=== PATIENT | male | born 1965 | race Caucasian/White ===

== ENCOUNTER → 2022-12-06 | Outpatient (CLI) | payer OTHER, SELFPAY ==
--- NOTE | 2022-12-06 | IMM_PTH ---
PATIENT: MARIELLE BARRY LOC: [facility] U#:[id number] AGE/SX: 57/M ROOM: RE12/06/[address]: Dr. Gideon Rodriguez MD : 1965 BED: DIS: 12/06/2022 SPEC #: [id number] RECD: 12/10/22 14:00 STATUS: KANG RENash #: [id number] DAYSI: 12/06/22 00:[address]: Gideon Rodriguez DEPT: IMMUNOHISTOCHEMISTRY RECD BY: Nena Cano Tissues: Left side of neck Procedures: BCL-2 (add) BCL-6 (add) CD10 (add) CD15 (add) CD20 (add) CD23 (add) CD3 (add) CD30 (add) CD43 (add) CD45 (add) CD5 (add) CD79A (add) KI-67 (add) Pankeratin (initial) PHYSICIAN & INSTITUTION [address] [address] SPECIMEN INFORMATION: Tissue Source: Left posterior neck mass/node Clinical Info: Left posterior neck mass/node Specimen Number: [id number] CPT code: 43853 METHODOLOGY: Deparaffinized sections of prefer/formalin-fixed tissue or PAP/DQ stained slides are incubated with monoclonal/polyclonal antibodies/oligonucleotide probes. Localization is made via biotin free immunoperoxidase method. Appropriate controls are performed and reacted as expected. Results on target cell population are indicated in the following table: RESULTS: ANTIBODY / CLONE RESULT AE1-3 (AE1/AE3/PCK26) negative CD3 (PS1) positive CD5 (SP10) positive CD10 (56C6) negative CD15 (MMA) negative CD20 (L26) positive CD23 (1B12) negative CD30 (Hi-H2) negative CD43 (L60) positive CD45 (RP2/18) positive CD79a (11E3) positive BCL-2 (bcl-2/100/D5) negative BCL-6 (YU280V/A8) negative Ki-67 (30-9) positive, low These tests were developed and their performance characteristics determined by [facility]. They may not have been cleared or approved by the U.S. Food and Drug Administration. The FDA has determined that such clearance or approval is not necessary. The above immunohistochemical/dualISH markers are ordered and reviewed by the Pathologist. INTERPRETATION: Left posterior neck, core biopsy: Polytypic (benign) lymphoid tissue. AM:gelacio 12/12/22
--- NOTE | 2022-12-06 08:00 | MASS_PTH ---
PATIENT: MARIELLE BARRY LOC: [facility]#:[id number] AGE/SX: 57/M ROOM: RE12/06/[address]: Dr. Gideon Rodriguez MD : 1965 BED: DIS: 12/06/2022 SPEC #: [id number] RECD: 12/06/22 13:45 STATUS: KANG LATISHA #: [id number] DAYSI: 12/06/22 08:[address]: Gideon Rodriguez DEPT: SURGICAL PATHOLOGY RECD BY: Randy Roblero Tissues: Neck, NOS Procedures: Special Stain Group II Surgery Specimen Level IV Imprint (control) HEADER OPERATION: Biopsy of left posterior neck mass/node PRE-OP DIAGNOSIS: Left posterior neck mass/node TISSUE SUBMITTED: Left posterior neck mass/node MICROSCOPIC DIAGNOSIS Left posterior neck, core biopsy: Polytypic lymphoid tissue. See comment. AM:alejandra 12/10/2022 COMMENT The specimen is evaluated at the time of touch preps (2) by Dr. Parikh. Immediate Evaluation = Polymorphous lymphocytes present. Immunohistochemistry ([id number]) supports the above diagnosis. FLOW analysis shows no evidence of a B-cell or T-cell lymphoma. Case has been reviewed in consultation with Dr. Martinez who concurs with the above diagnosis. IDC:SJ MICROSCOPIC DESCRIPTION Slides are reviewed. GROSS DESCRIPTION Received in fixative is one container labeled with the patient's name and designated left posterior neck mass biopsy. The specimen consists of multiple cores of pink-bowen soft tissue that in aggregate measure 2 x 0.5 x 0.1 cm. Loop Drier Operator portions are submitted for flow cytometry analysis. Two touch prep smears are prepared. The remainder of the specimen is submitted in its entirety in one cassette. / AM:alejandra 12/07/2022 TC:5 CPT: 60091, 19925
== END | disposition home or self-care (01) ==
LOC: LABSPEC 14:07
PROVIDERS: Referring Provider Surgery; Visit Provider Surgery
DX: R22.1 Localized swelling, mass and lump, neck (principal)
CPT/HCPCS: 88305; 88313; 88341; 88342

== ENCOUNTER 2023-10-14 13:51 | Observation (INO) | payer OTHER, SELFPAY ==
[2023-10-07 15:00] LABS: Partial Thromboplast Time 25.9 Seconds (24.1-36.2)
[2023-10-07 15:01] LABS: International Normalized Ratio 1.1
[2023-10-07 15:14] LABS: AST(SGOT) 18 U/L (15-37); Alanine Aminotransfer ALT/SGPT 50 U/L (16-61); Albumin, Serum 3.9 g/dL (3.2-5.0); Alkaline Phosphatase 85 U/L (45-117); Anion Gap 6 (5-15); BUN 21 mg/dL (7-18); BUN/Creat Ratio 19.6 RATIO (10-20); Calcium,Total 9.1 mg/dL (8.5-10.1); Chloride 107 mmol/L (98-107); Creatinine, Serum 1.07 mg/dL (0.70-1.30); EST Glomerular Filtration Rate 75 mL/min (>60); Est Glom Filt Rate - Afr Amer 91 mL/min (>60); Globulin 3.8 g/dL (2.2-4.2); Glucose 134 mg/dL (74-106); Magnesium 2.4 mg/dL (1.6-2.6); Potassium 3.7 mmol/L (3.5-5.1); Protein, Total 7.7 g/dL (6.4-8.2); Sodium Level 141 mmol/L (136-145)
[2023-10-07 16:00] LABS: HIV - WCH Non-Reactive (Nonreactive); Hepatitis B Surface Antibody Non-Reactive; Hepatitis C Antibody Non-Reactive (Nonreactive)
[2023-10-09 05:07] LABS: Hepatitis A AB, Total Negative (Negative)
--- NOTE | 2023-10-11 11:59 | HP.PCM_ITS ---
History and Physical MR#: [id number] Acct: [id number] Name: MARIELLE BARRY Rep #: [id number] : 1965 Provider: Dr. William Temple DO Age/Sex: 58/M [place] [facility] [place]: Signed Intake Vital Signs 09/19/2313:54 Height 5 ft 8 in Weight: 234 lb 2 oz BMI 35.6 Intake Visit Reasons: LUMBAR SPINE Accompanied by: Is patient in pain?: Yes Pain scale (1-10): 8 Allergies No Known Allergies Allergy (Unverified 09/19/23 13:55) Medications tramadol 50 mg tablet 50 mg PO Q8H 09/19/23 [History Confirmed 09/19/23] vitamin B uutmjpo-cshrypcj-ikaa-berberine 100 mg-100 mg tablet tab PO 09/19/23 [History Confirmed 09/19/23] PFSH Social History Smoking Status: Never smoker substance use type: does not use HPI LUMBAR SPINE Details: This documentation accurately reflects the service provided and the decisions made by me, Dr. William Temple DO 09/19/23 1352. Part of today?s visit was documented by Tonya FUNES, acting as scribe. MARIELLE BARRY is a 58 year old M here today NEW patient for lower back pain that radiates into the left hip and down the leg. States that this has been going on for 2 months. Denies any recent injury. He has numbness and tingling down the left leg. States that he is stiff in the morning but by the end of the day his pain is worse. Any physical activity like walking or standing makes his pain worse. He was using both ice and heat but for the last week and a half he has been just using heat. He has been seeing a chiropractor which is who referred him here. His chiropractor is Dr. Cabral at [facility] in [place]. He is taking Tramadol for his pain. Denies injections. He does so some stretches a few times a day which in the beginning helped but over time stopped working. States that doing traction in the morning with the chiropractor gives him the most relief but wears off in about 2 hours. Denies bowel/bladder dysfunction. Most pleasant gentleman 58 years old who presents accompanied by his . He stated to my scribe that this is been going on for a couple of months however his assured me that its been going on at least 3 months. First the pain was a 10/10 in severity and it was there every single day. Now it is only an 8/10 in severity and he is able to work but he does so in significant pain. Pain starts at the top of his buttocks on the left side and goes down his right thigh and down the back of the right leg to the top of his foot. He is basically describing both L5 and S1 symptomatology. He has never had this pain ever before. He states that 4 months ago his back felt normal and his leg felt normal. Again he really does not have low back pain despite the speak of its all at the top of his but may be the very very outside part of his left back but basically its more lower extremity. On examination he has very positive straight leg raising on the left. He has very positive tension signs on the left. He has positive contralateral straight leg raising. He has weakness of the EHL and the anterior tib on the left as compared to the right. He has some peroneal weakness on the left also as compared to the right. His left Achilles and posterior tibialis reflexes are both absent. The right ones are both 2+. He has no long tract signs. Clonus is absent and Babinski's are downgoing. I reviewed his MRI scan of the lumbar spine that demonstrates that he has a very large extrusion at L4-5 on the left side. It has gone so far behind the L5 vertebral body that is almost reaches the next disc space. Obviously he needs decompression of his L5 and S1 nerve roots. He does not need a fusion because he did not really does not have any significant low back pain. We will put him on the schedule as soon as is reasonably possible hopefully in early October or mid October at the latest. I will see him again at preop. Coding Level of Care Code Off vis,new,level 3 Diagnoses Herniated nucleus pulposus, L4-5 left M51.26 Time Spent (min) 35 Assessment and Plan Assessment and Plan (1) Herniated nucleus pulposus, L4-5 left:
[2023-10-14] VITALS (13 sets, daily range): BP systolic 118–163; BP diastolic 75–96; PULSE 72–84; RESP 12–18; TEMP 36–37.1; O2SAT 95–100; BMI 32.9; BMI 34.1
--- NOTE | 2023-10-14 | DISC_PTH ---
PATIENT: MARIELLE BARRY LOC: [facility] U#:[id number] AGE/SX: 58/M [facility] RE10/14/[address]: Dr. William Temple DO : 1965 BED: 1 DIS: 10/15/2023 SPEC #: [id number] RECD: 10/14/23 13:58 STATUS: KANG REQ #: [id number] DAYSI: 10/14/23 00:[address]: William Temple DEPT: SURGICAL PATHOLOGY RECD BY: Tony Castro ENTERED: 10/15/23 09:14 SP TYPE: DISC OTHR DR: DO Dr. Zena Perez MD Dr. Rohini Kalisetti, MD Tissues: Intervertebral disc, NOS Procedures: Surgery Specimen Level III HEADER OPERATION: Lumbar laminectomy L4-5 left. PRE-OP DIAGNOSIS: Herniated nucleus pulposus, L4-5 left TISSUE SUBMITTED: Disc material MICROSCOPIC DIAGNOSIS Disc L4-5, left, laminectomy: Fragments of fibrocartilaginous tissue with reactive and degenerative changes. EDUARDO:alejandra 10/16/2023 MICROSCOPIC DESCRIPTION Slides are reviewed. GROSS DESCRIPTION Received in fixative is one container labeled with the patient's name and designated disc material. The specimen consists of multiple irregular fragments of bowen, indurated tissue that in aggregate measure 3.0 x 2.5 x 0.4 cm. The specimen is totally submitted in one cassette. / EDUARDO:alejandra 10/15/2023 TC:5 CPT: 71056
[2023-10-14] MEDS: Acetaminophen 500 MG Tablet 1000 MG PO ×2 (09:49→17:42)
[2023-10-14] MEDS: Magnesium 1 GM over 15 mins IV (09:50)
[2023-10-14] MEDS: Lactated Ringers 1,000 ML 15 ML IV (09:50)
[2023-10-14 10:33] LABS: Bedside Glucose 113 mg/dL (74-106)
[2023-10-14] MEDS: Cefazolin 2 GM in 0.9% Normal Saline (100mL Bag) 100 ML IV (11:13)
[2023-10-14] MEDS: THROMBIN (RECOMBINANT) 20,000 UNIT VIAL 20000 UNIT TOPICAL (11:49)
--- NOTE | 2023-10-14 12:00 | RAD_ITS ---
STUDY: X-RAY - LUMBAR SPINE REASON FOR EXAM: Male, 58 years old. LUMBAR LAMINECTOMY L4-5 LEFT TECHNIQUE: Single lateral view of the lumbar spine were obtained. COMPARISON: Comparison is made with prior study dated September 19, 2023. FINDINGS: The localization instrument is seen posterior to the L4-L5 disc space level. RAD/Spine 1 View Any Level IMPRESSION: The localization instrument is seen posterior to the L4-L5 disc space level. Electronically Signed: Brandon Prieto MD at 12:42 EST ,
--- NOTE | 2023-10-14 13:55 | OP.PCM_ITS ---
Report of Operation Description of Surgical Findings:: Preoperative diagnosis: Large disc extrusion L4-5 with left L5 and S1 radiculopathy Postoperative diagnosis: Same Procedure: Lumbar laminectomy discectomy L4-5 on the left CPT code 74217 Surgeon: Dr. Temple Song And Dance Performer: Jordana FAITH Anesthesia: General endotracheal by [facility] EBL: Less than 30 cc Drains: None Complications: None Procedure: Patient was taken to the OR where he was placed under general endotracheal anesthesia while still on his gurney. A Dc catheter was inserted. Neuromonitoring placed her leads on the patient. We then moved the patient onto the prone position on the Dewayne frame. After appropriate positioning with care to protect his bony prominences his genitalia the ulnar nerves on both elbows, brachial plexus on both sides, the cervical spine, and his facial features the back was prepped and draped in standard fashion. I then made a longitudinal incision centered over the low back area subcutaneous tissues were incised length of the skin incision I elevated the paravertebral muscles off the lamina on the left side and put a marker in place and took an intraoperative x-ray demonstrated that we were at L5-S1 so we simply moved up 1 level extended the incision and took another x-ray to confirm that we were at L4-5. I then elevated the paravertebral muscles off of the lamina of 5 and the lamina of L4 noted because of the large herniation that went all the way down to nearly the next level I knew that we would also have to do a laminectomy at the top of L5 5 thus it was exposed as well as all of the lamina of L4. A Annabelle retractor was then put in place I then elevated the ligamentum flavum off the underside of the lamina of L4 on the left side the laminectomy was carried out with 45 degree Kerrison rongeurs. Removed all the ligamentum flavum lateralward. I then put the cottonoids under the edge of the L5 lamina to protect the dura. I then made a significant laminotomy of L5 also at the top of it could also perform medial facetectomy of the top of the L5 facet. This gave me a very good opening I then retracted the midline structures to the left and expose the disc note that the disc was a subligamentous and very large in size. I did then make an opening in the 4 5 disc and remove material from the disc base with pituitary rongeurs. I then pressed down on the nerve root retractor and much more material came out we then went into the axilla of the nerve as we had room now because of the laminectomy of L5 and expose more disc there. I cut a small hole in the posterior longitudinal ligament and expressed more material from within the subligamentous area. Note that this was a very large subligamentous herniation. This completely decompressed the L5 nerve root and subsequently also the S1 nerve root below it. Checked the foramina on the left there was no more pressure on the foramen whatsoever. Note that the nerve was as expected swollen because of the pressure it sat on it for over 3 months. Note we thoroughly irrigated with copious amounts of sterile saline every 10 to 15 minutes in the course of the case. We had excellent hemostasis at the end of the case. We then put amniotic membrane over all the exposed dura and nerve root. I then covered this with several Gelfoam pieces. It was quite a dry field we removed the Annabelle retractor and began closure. I closed the lumbar fascia using [id number] suture with #1 Vicryl. This was followed by closure of the subcutaneous tissues in 2 layers with both 0 Vicryl and 2-0 Vicryl in interrupted fashion and finally the skin was approximated using skin clips. Sterile dressings were then applied. The patient was then recovered in the OR moved to his hospital bed and taken to recovery in satisfactory condition. This is the end of operative summary on Erik Hoffmann. This is Dr. Temple dictating.
[2023-10-14] MEDS: Lactated Ringers 1,000 ML 100 ML IV ×2 (14:19→21:53)
[2023-10-14] MEDS: oxyCODONE 5 MG Tablet PO ×2 (17:42→21:42)
--- NOTE | 2023-10-14 20:10 | PN.HOSP_ITS ---
Reason for Visit Reason for Visit: Diagnoses Encounter for other preprocedural examination (10/14/23) Subjective Subjective 58-year-old male history of hypertension and lumbar radiculopathy presented to [facility] 10[facility]14[facility]2023 for lumbar laminectomy discectomy L4-5 on left due to large disc extrusion and radiculopathy. Patient underwent surgery with Dr. Temple and hospitalist consulted for medical management. Patient evaluated at bedside. He reports some soreness in his incision but overall feeling well, no chest pain or shortness of breath. Objective Data Objective Data Vital Signs: Vital Signs Temp Pulse Resp BP Pulse Ox O2 Del Method O2 Flow Rate 98.7 F 78 17 130/81 H 96 Room Air 4 10/14/23 20:07 10/14/23 20:07 10/14/23 20:07 10/14/23 20:07 10/14/23 20:07 10/14/23 20:07 10/14/23 14:43 Oxygen Flow Rate (L/min) 4 Oxygen Delivery Method Room Air Weight: 108 kg Body Mass Index (BMI) 34.1 Intake & Output: Intake and Output for Last 24 Hours 10/12/23 10/13/23 10/14/23 23:59 23:59 23:59 Intake Total 1212 / 1212 Output Total 1900 / 1900 Balance -688 / -688 Lab / Micro Data 10/07/23 14:07 Labs: Laboratory Results - last 24 hr 10/14/23 09:53: POC Glucose 113 H Micro: Microbiology 10/07/23 14:07 Swab (Method) Nasal Screen MRSA/MSSA - Final Radiography Diagnostic Testing: Radiology Impression Spine X-Ray 10/14/23 12:00 IMPRESSION: The localization instrument is seen posterior to the L4-L5 disc space level. Electronically Signed: Brandon Prieto MD at 12:42 EST , Physical Exam Narrative General: Alert, oriented, no apparent distress HEENT: Atraumatic, normocephalic Eyes: Anicteric, normal conjunctiva, extraocular movements grossly intact Neck: Supple Respiratory: Clear to auscultation bilaterally, normal respiratory effort Cardiovascular: Regular rate and rhythm GI: Soft, nontender, nondistended Extremities: No edema Musculoskeletal: Moving all extremities Neuro: No overt focal neurological deficits Skin: No rashes appreciated Psych: Cooperative Assessment & Plan Assessment/Plan (1) Herniated nucleus pulposus, L4-5 left: (2) Hypertension: PLAN: Plan #Large disc extrusion L4-5 with left L5 and S1 radiculopathy -Status post Lumbar laminectomy discectomy L4-5 on the left with Dr. Temple 10/14/2023 -Is on scheduled Tylenol with as needed medications -Management per primary #Hypertension -Home amlodipine continued #DVT ppx: Defer optimal timing to surgeon Zena Pina MD Time spent in the patient's overall evaluation,decision-making process, review of diagnostic data, adjustment of management, discussion with other providers, nursing nursing and ancillary staff involved in patient's care documentation, 25 minutes Charges/Coding Visit Charges Inpatient E&M: 44010 [facility] L1
[2023-10-14] MEDS: Cefazolin 1 GM/50 ML BAG IV (21:42)
[2023-10-15] MEDS: Cefazolin 1 GM/50 ML BAG IV ×2 (02:15→10:32)
[2023-10-15 02:30] VITALS: BP 145/76; PULSE 74; RESP 16; TEMP 37; O2SAT 98
[2023-10-15] MEDS: oxyCODONE 5 MG Tablet PO ×2 (06:32→10:33)
[2023-10-15] MEDS: Acetaminophen 500 MG Tablet 1000 MG PO ×2 (06:33→13:48)
[2023-10-15 06:45] VITALS: BP 156/89; PULSE 71; RESP 18; TEMP 37.1; O2SAT 100
[2023-10-15 08:30] VITALS: BP 136/80; PULSE 74; RESP 18; TEMP 36.7; O2SAT 100
[2023-10-15 09:00] VITALS: RESP 18
[2023-10-15] MEDS: amLODIPine 5 MG Tablet PO (10:33)
--- NOTE | 2023-10-15 11:06 | CASEMGMT ---
RAFAELA MENDOZA Assessment: Face to Face with pt for initial transition planning/care coordination assessment. RN REJI introduced self and role at [facility], pt voices understanding and consents to assessment. Pt is A&O x4 and answers all questions appropriately at this time. Pt lying in bed with at bedside. Care providers, pharmacy, and demographics verified/updated. Admitting Dx: lumbar laminectomy L4-5, left PCP:Kaitlyn Specialists:saroj Temple Pharmacy: [facility] Insurance: [employer] Prescription Benefit: yes LNOK: Rossana Hoffmann, Living Arrangements: Pt lives with in a two story home with [facility] with no steps to enter. Pt reports he is typically I in ADL's but assists with LB dressing and into the shower. Pt denies concerns at home. Transportation: Pt drives self and denies concerns with transportation. Pt will transport pt until he is able. DME:shower chair HHC/SNF: Denies hx of Pt states no concerns with going home at time of dc. Pt ambulated halls without device, denies need for. Pt states no further concerns/needs. CM to follow. Advised pt to ask CM if any further question/concerns/needs arise, voices understanding. Pt Goal: Home Plan: Home
--- NOTE | 2023-10-15 13:44 | DCINST_ITS ---
Discharge Instructions Activity May shower in (days): 5 May resume sexual activity in: 4-6 weeks Lifting Restrictions: 15 Dressing / Incision Remove Dressing in: 4 days Follow Up Care Test Results: Test results from this visit will be discussed in further detail at your follow- up appointment, if applicable. Discharge Plan Admission Admit Date/Time: 10/14/23 13:51 Primary Reason for Your Visit: back surgery Attending Provider: William Temple Primary Care Provider: Licha Sahni Consulting Providers: Zena Pina; Sandee Neri Discharge Orders/Prescriptions Prescriptions: No Action tramadol 50 mg tablet 50 mg PO Q8H Patient Comments: TAKE 1 TABLET BY MOUTH EVERY 8 HOURS NEEDED FOR SEVERE PAIN vit B qift-mjs-vwha-berberine 100-100 mg tablet 1 tab PO DAILY oxycodone-acetaminophen 7.5-325 mg tablet 1 tab PO Q6H PRN (Reason: pain) 10 Days Qty: 40 0RF amlodipine 5 mg tablet 5 mg PO DAILY Patient Comments: TAKE 1 TABLET BY MOUTH EVERY DAY Disposition Disposition (needs filled in before D/C Order can be placed): Home, Self Care
[2023-10-15 13:45] VITALS: BP 132/82; PULSE 73; RESP 18; TEMP 36.3; O2SAT 95
--- NOTE | 2023-10-15 13:46 | PCM.DC.SUM ---
Providers Date of Admission: 10/14/23 Primary Care Physician: Dr. Licha Sahni MD Attending Physician: Is Dr. Temple dictating discharge summary on [facility]. This patient was admitted yesterday morning and underwent lumbar laminectomy discectomy at the L4-5 level. Today he is doing well. His dressing is dry, he reports that all of his buttocks thigh and leg pain is completely resolved. He does have some numbness left in his left leg. Neurologically is intact with good motor strength of all the major muscle groups of both lower extremities. I gave him and his directions regarding his activities. He already has an appointment to see me in a couple of weeks. He knows how to get ahold of me in the event that he should need to. He already has his pain medicine at home that I gave him prior to surgery. This is the end of discharge summary on [facility]. This is Dr. Temple dictating. Consultations 10/14/23 14:16 Consult: Hospitalist Routine Consulting Provider: Zena Pina Reason for Consult: Medical Management EMERGENT Consult: No MD Notified: Yes Date Notified: 10/14/23 Time Notified: 18:47 Method of Notification: Text Reason For Visit: ERAS Lumbar laminectomy L4-5 left Diagnosis Discharge Diagnosis (1) Herniated nucleus pulposus, L4-5 left: Status: Acute Code(s): M51.26 - Other intervertebral disc displacement, lumbar region (2) Hypertension: Status: Chronic Code(s): I10 - Essential (primary) hypertension Medications at Discharge Home Medications tramadol 50 mg tablet 50 mg PO Q8H 09/19/23 vitamin B mkmyyhg-ngevnuwa-nffv-berberine 100 mg-100 mg tablet 1 tab PO DAILY 09/19/23 amlodipine 5 mg tablet 5 mg PO DAILY 10/03/23 oxycodone-acetaminophen 7.5 mg-325 mg tablet 1 tab PO Q6H PRN pain 10 days #40 tabs 10/10/23 Weight / BMI Weight Weight: 238 lb 1.588 oz Body Mass Index (BMI) 34.1 ABG / Lab / Microbiology Data 10/07/23 14:07 Microbiology: Microbiology 10/07/23 14:07 Swab (Method) Nasal Screen MRSA/MSSA - Final D/C Instructions May shower in (days): 5 May resume sexual activity in: 4-6 weeks Meaningful Use Info Meaningful Use Diagnoses (Choose all that apply): None applicable Discharge Plan Admission Admit Date/Time: 10/14/23 13:51 Primary Reason for Your Visit: back surgery Attending Provider: William Temple Primary Care Provider: Licha Sahni Consulting Providers: Zena Pina; Sandee Neri Discharge Orders/Prescriptions Prescriptions: No Action tramadol 50 mg tablet 50 mg PO Q8H Patient Comments: TAKE 1 TABLET BY MOUTH EVERY 8 HOURS NEEDED FOR SEVERE PAIN vit B daup-yuy-ktmg-berberine 100-100 mg tablet 1 tab PO DAILY oxycodone-acetaminophen 7.5-325 mg tablet 1 tab PO Q6H PRN (Reason: pain) 10 Days Qty: 40 0RF amlodipine 5 mg tablet 5 mg PO DAILY Patient Comments: TAKE 1 TABLET BY MOUTH EVERY DAY Disposition Disposition (needs filled in before D/C Order can be placed): Home, Self Care
== END 2023-10-15 13:57 | disposition home or self-care (01) ==
LOC: MS3 10-15 06:53 → SDC 10-15 08:24 → MS3 10-15 09:13
PROVIDERS: Anesthesiology; Admitting Provider Orthopaedic Surgery; PCP Student in an Organized Health Care Education/Training Program; Referring Provider Orthopaedic Surgery; Visit Provider Orthopaedic Surgery
PROC: (CPT 63030; principal; 2023-10-14 10:55)
DX: M51.26 Other intervertebral disc displacement, lumbar region (principal); M54.17 Radiculopathy, lumbosacral region; I10 Essential (primary) hypertension; Z79.899 Other long term (current) drug therapy
CPT/HCPCS: 63030; 00630; 36415; 72020; 80048; 80076; 82962; 83735; 85610; 85730; 86703; 86706; 86708; 86803; 87081; 88304; 93005; 94668; 96361; 96365; 96366; 97161; 99221; J7120; G0378; J2405; J3475